=== PATIENT | male | born 1995 | race African-American/Black ===

== ENCOUNTER 2019-01-16 18:17 | Emergency (ER) | payer SELFPAY ==
[~2019-01-16] VITALS: Ht 188 cm; Wt 83.9 kg
[2019-01-16 18:25] VITALS: BP 125/43
--- NOTE | 2019-01-16 18:35 | NUR ---
BIB [facility] [employer], C/O LEFT PALM CUT. BLEEDING CONTROLLED AT THIS TIME. DENIES OTHER SYMPTOMS AT THIS TIME. NO HX OR RX
--- NOTE | 2019-01-16 18:43 | NUR ---
Patient discharged with v/s stable. Written and verbal after care instructions given and explained. Patient verbalized understanding. Ambulatory in custody escorted by Nae KISER. All questions addressed prior to discharge. Advised to follow up with PMD.
== END 2019-01-16 18:43 ==
LOC: MED 18:17
DX: S61.512A Laceration without foreign body of left wrist, initial encounter (principal); X99.8XXA Assault by other sharp object, initial encounter; Y93.89 Activity, other specified; Y92.89 Other specified places as the place of occurrence of the external cause; Y99.8 Other external cause status
CPT/HCPCS: 99283